=== PATIENT | female | born 1985 | race Caucasian/White ===

== ENCOUNTER 2019-11-12 08:14 | Outpatient (CLI) | payer BC ==
--- NOTE | 2019-11-12 09:05 | MMO ---
Bilateral MAMMO Bilat Diag [facility]. CLINICAL HISTORY: Patient is 34 years old and is seen for diagnostic exam and palpable abnormality in the lower region of the left breast. The patient has the following family history of breast cancer: great grandmother, malignant (generic). The patient has no personal history of cancer. The patient has a history of left Cyst Aspiration in 2017 - benign. VIEWS: The views performed were: bilateral craniocaudal with tomosynthesis; bilateral mediolateral oblique with tomosynthesis; and bilateral mediolateral with tomosynthesis. FILMS COMPARED: The present examination has been compared to a prior imaging study performed at [facility] on 11/12/2019. This study has been interpreted with the assistance of computer-aided detection. MAMMOGRAM FINDINGS: There are scattered fibroglandular densities. There are no suspicious masses, suspicious calcifications, or new areas of architectural distortion. There are no mammographic or sonographic abnormalities of the breast parenchyma in the area of palpable concern. The patient is referred back to her clinician. Negative imaging findings should not preclude biopsy if clinical findings are suspicious. IMPRESSION: THERE IS NO MAMMOGRAPHIC EVIDENCE OF MALIGNANCY. NONSPECIFIC FINDINGS INVOLVING THE SKIN BY SONOGRAPHY, PLEASE SEE THAT REPORT. THE RESULTS OF THIS EXAM WERE SENT TO THE PATIENT. ACR BI-RADS Category 1 - Negative MAMMOGRAPHY NOTE: 1. A negative mammogram report should not delay a biopsy if a dominant of clinically suspicious mass is present. 2. Approximately 10% to 15% of breast cancers are not detected by mammography. 3. Adenosis and dense breasts may obscure an underlying neoplasm. Reported by: JETHRO STORY MD Electonically Signed: [id number]
--- NOTE | 2019-11-12 09:42 | ULT ---
LIMITED LEFT BREAST ULTRASOUND: DATE: 11/12/2019. PROVIDED CLINICAL HISTORY: Left breast discoloration. FINDINGS: Limited sonographic interrogation was performed of the left breast in the region of clinical concern. The sonographic appearance of the breast tissue in this region is normal. There is vague nonspecif ic altered echogenicity within the subcutaneous adipose tissue in the region of clinical concern. IMPRESSION: 1. BIRADS category 1 - negative with respect to the breast parenchyma. Negative imaging findings sh ould not preclude further evaluation of a clinically suspicious area. 2. Nonspecific altered echogenicity in the subcutaneous adipose layer in the region of clinical conc [place]. Correlation with the physical examination is necessary. Dermatology consultation may be useful as indicated. POS: OFF
== END 2019-11-12 08:15 | disposition home or self-care (01) ==
LOC: BICMAMMO 08:14
PROVIDERS: ATTEND Family Medicine
DX: N64.9 Disorder of breast, unspecified (principal)
CPT/HCPCS: 77066; G0279

== ENCOUNTER 2022-10-02 10:23 | Outpatient (CLI) | payer BC, OTHER | END 2022-10-02 10:24 | disposition home or self-care (01) | LOC: DTY/OP 10:23 | PROVIDERS: ATTEND Surgery | DX: E66.01 Morbid (severe) obesity due to excess calories (principal) | CPT/HCPCS: 97802 ==

== ENCOUNTER 2023-09-05 15:05 | Outpatient (CLI) | payer BC | END 2023-09-05 15:06 | disposition home or self-care (01) | LOC: BICMAMMO 15:05 | PROVIDERS: ATTEND Family Medicine | DX: Z12.31 Encounter for screening mammogram for malignant neoplasm of breast (principal); Z80.3 Family history of malignant neoplasm of breast; Z91.89 Other specified personal risk factors, not elsewhere classified | CPT/HCPCS: 77063; 77067 ==

== ENCOUNTER 2023-09-11 14:32 | Outpatient (CLI) | payer BC | END 2023-09-11 14:33 | disposition home or self-care (01) | LOC: BICMAMMO 14:32 | PROVIDERS: ATTEND Family Medicine | DX: N64.89 Other specified disorders of breast (principal) | CPT/HCPCS: G0279 ==

== ENCOUNTER 2025-09-17 13:26 | Outpatient (CLI) | payer BC ==
[2025-09-17 15:01] LABS: #Basophils 0.05 10x3/uL (0.0-0.2); #Eosinophils 0.15 10x3/uL (0.0-0.7); #Monocytes 0.58 10x3/uL (0.11-0.59); #Neutrophils 5.78 10x3/uL (1.40-6.50); %Basophils 0.6 % (0.0-1.0); %Eosinophils 1.8 % (0.0-10.0); %Lymphocytes 23.0 % (21.0-51.0); %Monocytes 6.8 % (0.0-10.0); %Neutrophils 67.6 % (42.0-75.0); Hematocrit 40.7 % (36.0-47.0); Hemoglobin 14.0 g/dL (12.0-16.0); Mean Corpuscular Hemoglobin 30.6 pg (27.0-31.0); Mean Corpuscular Volume 88.9 fL (78.0-98.0); Platelet Count 374 10x3/uL (130-400); Red Blood Cell (RBC) Count 4.58 mill/uL (4.20-5.40); White Blood Cell (WBC) Count 8.55 10x3/uL (4.8-10.8)
[2025-09-17 15:16] LABS: ALT (SGPT) 25 U/L (Less than 34); AST (SGOT) 22 U/L (11-34); Albumin 4.2 g/dL (3.1-4.5); Alkaline Phosphatase 47 U/L (40-110); Anion Gap 12 mmol/L (10-20); BUN (Urea Nitrogen) 19 mg/dL (7.0-18.7); Bilirubin, Total 0.3 mg/dL (0.3-1.2); Calc. Creatinine Clearance 0 mL/min (70-130); Calcium 10.3 mg/dL (7.8-10.44); Carbon Dioxide 25 mmol/L (22-29); Chloride 105 mmol/L (98-107); Globulin 2.8 g/dL (2.4-3.5); Glucose 86 mg/dL (70-105); Potassium 3.8 mmol/L (3.5-5.1); Sodium 138 mmol/L (136-145)
[2025-09-17 16:17] LABS: BHCG - Serum Negative (NEGATIVE); Pregs Control Background? CLEAR/WHITE (CLR/WHITE); Pregs Control Bar Appear? YES (CONTROL BAR)
== END 2025-09-17 13:27 | disposition home or self-care (01) ==
LOC: LABBT 13:26
PROVIDERS: ATTEND Surgery
DX: Z01.818 Encounter for other preprocedural examination (principal); E66.01 Morbid (severe) obesity due to excess calories
CPT/HCPCS: 80053; 83036; 84703; 85025; 93005; 93010

== ENCOUNTER 2025-09-22 07:45 | Inpatient (IN) | payer BC ==
[2025-09-17 13:34] VITALS: BMI 40.1
[2025-09-22] MEDS ORDERED: Bupivacaine 0.25% HCL 30 ML VIAL ONE (08:05)
[2025-09-22] MEDS ORDERED: Acetaminophen 500 MG TAB ONE (08:13)
[2025-09-22] MEDS ORDERED: Heparin 5,000 UNITS/ML VIAL ONE (08:13)
[2025-09-22] MEDS ORDERED: fentaNYL PF 100 MCG/2 ML SYRINGE ONE ×2 (08:18→09:35)
[2025-09-22] MEDS ORDERED: Lidocaine 1% PF 5 ML VIAL ONE (08:18)
[2025-09-22] MEDS ORDERED: Rocuronium Bromide 10 MG/ML (10ML VIAL) ONE (08:41)
[2025-09-22] MEDS ORDERED: Ondansetron PF 4 MG/2 ML Vial ONE ×2 (09:28→10:39)
[2025-09-22] MEDS ORDERED: SUGAMMADEX SODIUM 200 MG/2 ML VIAL ONE (09:29)
[2025-09-22] MEDS ORDERED: Glucagon 1 MG/ML KIT IM PRN (11:38)
[2025-09-22] MEDS ORDERED: hydrALAZINE 20 MG/ML VIAL SLOW IVP PRN (11:38)
[2025-09-22] MEDS ORDERED: diphenhydrAMINE 50 MG/ML VIAL IVP PRN (11:38)
[2025-09-22] MEDS ORDERED: Dextrose 50% Abboject 50 ML SYRINGE SLOW IVP PRN (11:38)
[2025-09-22] MEDS ORDERED: Ondansetron PF 4 MG/2 ML Vial IVP PRN (11:38)
[2025-09-22] MEDS: oxyCODONE 5 MG TAB PO PRN (12:16)
[2025-09-22] MEDS: D5 1/2 NS w/20 mEq KCL 1,000 ML IV SCH (12:16)
[2025-09-23 05:02] LABS: #Basophils Less than 0.03 10x3/uL (0.0-0.2); #Eosinophils Less than 0.03 10x3/uL (0.0-0.7); #Monocytes 0.87 10x3/uL (0.11-0.59); #Neutrophils 8.49 10x3/uL (1.40-6.50); %Basophils 0.1 % (0.0-1.0); %Eosinophils 0.1 % (0.0-10.0); %Lymphocytes 16.4 % (21.0-51.0); %Monocytes 7.7 % (0.0-10.0); %Neutrophils 75.4 % (42.0-75.0); Hematocrit 37.7 % (36.0-47.0); Hemoglobin 12.8 g/dL (12.0-16.0); Mean Corpuscular Hemoglobin 30.5 pg (27.0-31.0); Mean Corpuscular Volume 90.0 fL (78.0-98.0); Platelet Count 337 10x3/uL (130-400); Red Blood Cell (RBC) Count 4.19 mill/uL (4.20-5.40); White Blood Cell (WBC) Count 11.26 10x3/uL (4.8-10.8)
[2025-09-23 05:32] LABS: Anion Gap 4 mmol/L (10-20); BUN (Urea Nitrogen) 7 mg/dL (7.0-18.7); Calc. Creatinine Clearance 166 mL/min (70-130); Calcium 9.7 mg/dL (7.8-10.44); Carbon Dioxide 26 mmol/L (22-29); Chloride 108 mmol/L (98-107); Glucose 117 mg/dL (70-105); Potassium 3.7 mmol/L (3.5-5.1); Sodium 134 mmol/L (136-145)
[2025-09-23] MEDS: Levothyroxine 150 MCG TAB PO SCH (05:52)
[2025-09-23] MEDS: Losartan 25 MG TAB PO SCH (08:48)
[2025-09-23] MEDS: Enoxaparin 40 MG (0.4 mL) SYRINGE SC SCH (08:49)
[2025-09-23] MEDS: Pantoprazole 40 MG VIAL IVP SCH (08:49)
[2025-09-23] MEDS ORDERED: Non-Formulary Item 1 EACH (Olmesartan/Hydrochlorothiazide [Olmesartan-Hctz 40-12.5 Mg Tab PO SCH (09:00)
[2025-09-23] MEDS ORDERED: Non-Formulary Item 1 EACH (Olmesartan Medoxomil [Olmesartan Medoxomil] 40 MG Tablet) PO SCH (09:00)
[2025-09-23 12:41] VITALS: BP 157/106; TEMP 98.2
== END 2025-09-23 12:10 | disposition home or self-care (01) | DRG 621 ==
LOC: SDC 07:45 → SURG A 11:37
PROVIDERS: ADMIT Surgery; ATTEND Surgery
PROC: 0DB64Z3 Excision of Stomach, Percutaneous Endoscopic Approach, Vertical (ICD-10-PCS; principal; 2025-09-22)
PROC: 8E0W4CZ Robotic Assisted Procedure of Trunk Region, Percutaneous Endoscopic Approach (ICD-10-PCS; 2025-09-22)
DX: E66.01 Morbid (severe) obesity due to excess calories (principal); Z68.41 Body mass index [BMI] 40.0-44.9, adult; Z88.8 Allergy status to other drugs, medicaments and biological substances; Z88.1 Allergy status to other antibiotic agents; Z88.5 Allergy status to narcotic agent; Z79.899 Other long term (current) drug therapy; Z79.890 Hormone replacement therapy; Z98.890 Other specified postprocedural states; E03.9 Hypothyroidism, unspecified; I10 Essential (primary) hypertension; Z88.2 Allergy status to sulfonamides; Z91.041 Radiographic dye allergy status
CPT/HCPCS: 36415; 80048; 85025; 88307; J0169; J0665; J1100; J1644; J1650; J2405; J2470; J2704; J3010; J3480; S2900